=== PATIENT | female | born 1950 | race Hispanic/Latino ===

== ENCOUNTER 2016-05-19 04:35 | Emergency (ER) | payer OTHER ==
[2016-05-19 04:49] VITALS: BP 132/63
--- NOTE | 2016-05-19 08:25 | Emergency Department Report ---
HPI - General Chief Complaint: Upper Respiratory Infection Time Seen by Provider: 05/19/16 08:23 - HPI HPI: Patient here complaining that she is coughing and shortness of breath 4 days. States that she has a history of asthma. Denies any fever or chills. Denies any wheezing. She says she has her asthma inhaler and she's been using it. Denies any pain. Denies any chest pain. Denies any nausea or vomiting. patient is visiting from [facility]. Patient said that she is taking Flonase for congestion. ED Past Medical Hx - Past Medical History Previous Medical History?: Yes Hx Diabetes: Yes Hx Psychiatric Treatment: Yes (BIPOLAR) - Surgical History Past Surgical History?: No - Family History Family history: hypertension - Social History Smoking Status: Never Smoker Substance Use Type: None - Medications Home Medications: Home Medications Medication Instructions Recorded Confirmed Last Taken Type Loratadine [Claritin] 10 mg PO DAILY #10 tablet 05/19/16 Unknown Rx ED Review of Systems ROS: Stated complaint: JHON Other details as noted in HPI Comment: All other systems reviewed and negative Constitutional: denies: chills, fever, weakness Eyes: denies: eye pain, vision change ENT: congestion. denies: ear pain, throat pain Respiratory: cough, shortness of breath, SOB with exertion. denies: orthopnea, SOB at rest, stridor, wheezing Cardiovascular: denies: chest pain, palpitations, edema, syncope Gastrointestinal: denies: abdominal pain, nausea, vomiting Musculoskeletal: denies: back pain, arthralgia Skin: denies: rash Neurological: denies: headache, numbness, paresthesias, vertigo Physical Exam - Physical Exam Vital Signs: Vital Signs 05/19/16 04:45 Temperature 98.3 F Pulse Rate 107 H Respiratory 20 Rate Blood Pressure 132/63 O2 Sat by Pulse 96 Oximetry General: This is a 66-year-old female well-nourished well-developed in no acute distress. Physical Exam: Head: Normocephalic atraumatic Mouth: Moist, no pharyngeal exudate or erythema. Uvula is midline and oral airway is patent. No gingival enlargement or dental tenderness. No facial swelling. No peritonsillar abscesses. Neck: Supple, no C-spine tenderness, no tracheal deviation. Nontender to palpate. no adenopathy Ears: Bilateral TMs congested without erythema .bilateral EAC without any redness swelling or drainage Eyes: Bilateral pupils equal and reactive to light, bilateral EOM intact. Bilateral sclera and conjunctiva without injection. Normal accommodation Nose: Mucosa moist, positive congestion and erythema. Positive clear drainage. maxillary and frontal sinus non-tender to palpate. Lungs: Clear to auscultate bilaterally no rhonchi wheezes or rales. Normal work of breathing extremity; No CCE. +2 pulses. No neurovascular compromise Cardiovascular: S1-S2, regular rate rhythm. No murmurs. Skin: clean Dry and intact no rash no lesions Psych: Normal mood and behavior ED Course Vital Signs 05/19/16 04:45 Temperature 98.3 F Pulse Rate 107 H Respiratory 20 Rate Blood Pressure 132/63 O2 Sat by Pulse 96 Oximetry Vital Signs 05/19/16 05/19/16 04:45 09:21 Temperature 98.3 F Pulse Rate 107 H 90 Respiratory 20 Rate Blood Pressure 132/63 O2 Sat by Pulse 96 Oximetry Vital Signs 05/19/16 05/19/16 05/19/16 04:45 09:21 09:33 Temperature 98.3 F Pulse Rate 107 H 90 Respiratory 20 Rate Blood Pressure 132/63 O2 Sat by Pulse 96 100 Oximetry - Reevaluation(s) Reevaluation #1: 05/19/16 09:21 She is stable throughout ED stay. ED Medical Decision Making - Medical Decision Making ED course: I discussed with patient if she has sinus inflammation and she should continue with her Flonase and I'll add Claritin. I understanding of diagnosis and treatment plan. Condition discharged home with prescription for Claritin and to continue her Flonase. Critical care attestation.: If time is entered above; I have spent that time in minutes in the direct care of this critically ill patient, excluding procedure time. ED Disposition Clinical Impression: Cough Acute inflammation of sinus Qualifiers: Sinusitis location: unspecified location Recurrence: not specified as recurrent Qualified Code(s): J01.90 - Acute sinusitis, unspecified Disposition: DISCHARGED TO HOME OR SELFCARE Is pt being admited?: No Does the pt Need Aspirin: No Condition: Stable Instructions: Sinusitis (ED), Acute Cough (ED) Additional Instructions: Please return to nostril out with saline nasal wash. Continue to use Flonase. Prescriptions: Loratadine [Claritin] 10 mg PO DAILY #10 tablet Referrals: PRIMARY CARE, [Primary Care Provider] - 3-5 Days Forms: Work/School Release Form(ED)
== END 2016-05-19 10:25 | disposition home or self-care (01) ==
LOC: ED 04:35
DX: J01.90 Acute sinusitis, unspecified (principal); R05 Cough; J45.909 Unspecified asthma, uncomplicated; E11.9 Type 2 diabetes mellitus without complications; F31.9 Bipolar disorder, unspecified
CPT/HCPCS: 99282

== ENCOUNTER 2016-05-19 18:13 | Emergency (ER) | payer MEDICARE, OTHER | END 2016-05-19 19:27 | disposition left against medical advice (07) | LOC: ED 18:13 | DX: Z53.21 Procedure and treatment not carried out due to patient leaving prior to being seen by health care provider (principal) ==